=== PATIENT | female | born 1975 | race Caucasian/White ===

== ENCOUNTER 2019-04-08 21:58 | Emergency (ER) | payer BC ==
[~2019-04-08] VITALS: Ht 162.6 cm; Wt 86.2 kg
[2019-04-08 22:10] VITALS: BP_SYST 126
== END 2019-04-08 22:32 | disposition left against medical advice (07) ==
LOC: SED 21:58
DX: H57.11 Ocular pain, right eye (principal); M79.641 Pain in right hand; Z53.21 Procedure and treatment not carried out due to patient leaving prior to being seen by health care provider
CPT/HCPCS: 96361; 96374; 96375; 99283; J7030